=== PATIENT | male | born 1985 | race Caucasian/White ===

== ENCOUNTER 2023-09-03 15:35 | Outpatient (CLI) | payer OTHER, SELFPAY ==
--- NOTE | ~2023-09-03 | MR_ITS ---
EXAMINATION: MR abdomen wo/w con, MR pelvis wo/w con DATE: 09/03/2023 17:11 INDICATION: Rectal cancer. Liver cyst. TECHNIQUE: 1. Magnetic resonance imaging (MRI) of the abdomen was performed without and with 13 mL Multihance in travenous contrast. Sequences included coronal T2-weighted SS-FSE, coronal and axial FS 2D-FIESTA, a xial STIR FSE, axial T2-weighted SS-FSE, axial T2-weighted FS SS-FSE, axial diffusion-weighted SE, ax ial dual-echo T1-weighted FSPGR, and axial and coronal T1-weighted LAVA. Postcontrast axial T1-weight ed LAVA images were obtained in a time course. Postcontrast coronal T1-weighted LAVA images were obta ined. 2. MRI of the pelvis was performed without and with 13 mL Multihance utilizing the identical contrast bolus. [place]field sequences of the pelvis included axial and coronal T2-weighted SS FSE, axial and co sonu 2D FIESTA, axial dual-echo T1-weighted FSPGR and axial T1 weighted LAVA. Small field of view s equences aligned relative to the axis of the affected segment of rectum included axial, sagittal and coronal T2-weighted FSE. Postcontrast sequences included axial and coronal T1-weighted LAVA. COMPARISON: None. FINDINGS: Abdomen: Heart size is normal. No pericardial or pleural effusion. 1 cm T2 hyperintense nonenhancing cyst in s egment 6 of the liver. There are a couple 1.5 cm and 0.9 cm nodules at the junctions of segments 7 an d 8 of the liver which are hypointense to the surrounding liver on T1-weighted imaging with restricte d diffusion. Both lesions demonstrate relatively subtle T2 hyperintensity and subtle enhancement on t he five-minute delayed images. The larger of the 2 lesions has a central 4 mm region of significantly higher T2 hyperintensity which is without enhancement on the delayed images suggesting a central cys tic component to the lesion. The signal and enhancement pattern of increased or lesions is nonspecifi c, not diagnostic of a benign lesion and differential includes metastatic disease. Spleen, pancreas, bilateral adrenal glands and kidneys are normal. No pathologically enlarged abdominal lymphadenopathy . No bowel obstruction. There is normal bone marrow signal throughout. Pelvis: Low rectal mass with heterogeneous circumferential wall thickening with apple core configuration and lobular intraluminal contour at the rectum which extends 4.8 cm in proximal to distal length. There i s no evident T2 hyperintense mucinous component to the mass. The distal margin of the mass is located 4.2 cm from the anal verge and 1.7 cm proximal to the anal rectal junction. The tumor lies caudal to the level of the anterior peritoneal reflection. Throughout most of the region of tumor there is extension to at least in likely within the muscularis propria. There is a nodular extension of the mass beyond the muscularis propria into the mesorectal fat. This extends 7 mm peripheral to the muscularis propria consistent with a T3c tumor and measures 11 x 9 mm in maximal orthogonal dimensions. This occurs at the 9:00 position on the right side of the tumor on the images obtained transaxial to the axis of the distal rectum. Its closest approach to th e mesorectal fascia is 7 mm to the fascia along the posterior aspect of the right seminal vesicle. At this same proximal to distal level but slightly more anteriorly at the 11:30 position there is subtl e undulating contour to the periphery of the muscular propria, indeterminate for an additional region of invasion of the mesorectal fat which approaches to within 3 mm of the mesorectal fascia. There is no evident pelvic organ or sidewall involvement or evident extramural vascular invasion. There are a few round relatively homogeneous appearing lymph nodes with smooth margins in the mesorec [place] fat one measuring approximately 5 mm in diameter on the left at the 3:00 position measuring 4 mm lymph node on the left at the 4:00 position, a 6 mm lymph node
== END 2023-09-03 15:36 | disposition home or self-care (01) ==
PROVIDERS: PCP Internal Medicine Rheumatology; Visit Provider Internal Medicine Medical Oncology
DX: C20 Malignant neoplasm of rectum (principal); K76.89 Other specified diseases of liver
CPT/HCPCS: 72197; 74183; A9577; J1610